=== PATIENT | male | born 1980 | race Caucasian/White ===

== ENCOUNTER 2018-09-16 03:14 | Emergency (ER) | payer MEDICARE ==
[~2018-09-16] VITALS: Ht 175.3 cm; Wt 108.9 kg
--- OUTSIDE RECORDS SUMMARY | 2018-09-16 03:16 | XMS REPORT ---
Author Author [facility] Address Unknown Phone Unavailable Care Team Providers Care Director Of People Name Role Phone Unavailable Unavailable Payers Payer Name Policy Type Policy Number Effective Date Expiration Date Problems This patient has no known problems. Allergies, Adverse Reactions, Alerts Allergy Name Allergy Type Status Severity Reaction(s) Onset Date Inactive Date Treating Clinician Comments Penicillins DA Active U 2018-09-11 00:00:00 No Known Contrast Allergies DA Active U 2006-11-05 00:00:00 No Known Food Allergies DA Active U 2006-11-05 00:00:00 No Known Other Allergies DA Active U 2006-11-05 00:00:00 PENICILLIN DA Active U 2006-11-05 00:00:00 No Known Drug Intolerances DA Active U 2006-11-04 00:00:00 Medications This patient has no known medications.
--- NOTE | 2018-09-16 04:07 | Diagnostic Imaging Report ---
EXAM: XR CHEST 2 VIEWS DATE: 09/16/2018 3:34 AM INDICATION: Cough COMPARISON: None FINDINGS: Lines and Tubes: None Heart and Mediastinum: No acute cardiomediastinal findings. Lungs and Pleura: Minimal left basilar opacity. Bones and Soft Tissues: No acute findings. IMPRESSION: 1. Left basilar opacity could represent atelectasis or pneumonia. Signed by: Dr. Kyle Cabezas MD on 09/16/2018 4:03 AM
== END 2018-09-16 05:12 | disposition home or self-care (01) ==
LOC: ER 03:14
DX: R05 Cough (principal); J20.9 Acute bronchitis, unspecified; F31.9 Bipolar disorder, unspecified
CPT/HCPCS: 71046; 99283